=== PATIENT | female | born 1955 | race Caucasian/White ===

== ENCOUNTER 2018-03-07 17:21 | Emergency (ER) | payer MEDICAID ==
[2018-03-07] MEDS ORDERED: HYDROmorphone 0.5 MG/0.5 ML Syringe IVPUSH ONE (17:31)
--- NOTE | 2018-03-07 17:33 | EDM.PDOC ---
ED HPI GENERAL MEDICAL PROBLEM - General Chief Complaint: Neurological Problem Stated Complaint: AMBULANCE Time Seen by Provider: 03/07/18 17:25 Source of Information: Reports: Patient, EMS History Limitations: Reports: No Limitations - History of Present Illness INITIAL COMMENTS - FREE TEXT/NARRATIVE: 62 yo female presents via EMS after a 2 min generalized seizure at a local grocery store that occurred when she bent over. EMS transported after administering Zofran IV for nausea with relief. Stable vitals en route. Has no hx of epilepsy. Say she incurred a head injury about 3 weeks ago and still has a hematoma in the L congregational area. She was seen in [facility] after that [facility] , no imaging at that time. Admitted 2-3 alcoholic drinks/day to EMS. Does have a moderate UGALDE currently. No def'n incontinence or tongue biting. 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 ) Headache Pain Score (Numeric/FACES): 5 - Related Data Allergies Allergy/AdvReac Type Severity Reaction Status Date / Time lisinopril Allergy Other Verified 03/07/18 17:34 Penicillins Allergy Swelling Verified 03/07/18 17:34 tetracycline Allergy Other Verified 03/07/18 17:34 amlodipine AdvReac Cannot Verified 03/07/18 17:34 Remember levofloxacin [From Levaquin] AdvReac Cannot Verified 03/07/18 17:34 Remember prednisone AdvReac Other Verified 03/07/18 17:34 ED ROS GENERAL - Review of Systems Review Of Systems: See Below Constitutional: Reports: No Symptoms HEENT: Reports: No Symptoms Respiratory: Reports: No Symptoms Cardiovascular: Reports: No Symptoms GI/Abdominal: Reports: Nausea. Denies: Abdominal Pain, Black Stool, Bloody Stool, Constipation, Diarrhea, Distension, Hematemesis, Hematochezia, Melena, Vomiting : Reports: No Symptoms. Denies: Incontinence Musculoskeletal: Reports: No Symptoms Skin: Reports: No Symptoms Neurological: Reports: Headache Psychiatric: Reports: No Symptoms - Physical Exam Exam: See Below Exam Limited By: No Limitations General Appearance: Alert, WD/WN, No Apparent Distress Eye Exam: Bilateral Eye: EOMI, Normal Inspection, PERRL Ears: Normal External Exam, Normal Canal, Hearing Grossly Normal, Normal TMs Nose: Normal Inspection, Normal Mucosa, No Blood Throat/Mouth: Normal Inspection, Normal Lips, Normal Oropharynx, Normal Voice, No Airway Compromise Head Exam: Atraumatic, Normocephalic Neck: Normal Inspection, Supple Respiratory/Chest: No Respiratory Distress, Lungs Clear, Normal Breath Sounds, No Accessory Muscle Use Cardiovascular: Regular Rate, Rhythm, No Edema GI/Abdominal: Normal Bowel Sounds, Soft, Non-Tender, No Distention Neuro Exam (Abbreviated): Alert, Oriented, CN II-XII Intact, Normal Cognition, No Motor/Sensory Deficits Extremities: Normal Inspection, Normal Range of Motion, Non-Tender, No Pedal Edema Psychiatric: Normal Affect, Normal Mood Skin Exam: Warm, Dry, Intact, Normal Color, No Rash Course - Vital Signs Text/Narrative:: Had a seizure in [place] that lasted about 20 sec associated with arms in full flexion and L leg shaking. Was given 1 mg of Ativan IV at the conclusion of the seizure. Dr. Christopher, [facility] neurosurgery, accepted @ 1820h Last Recorded V/S: Last Vital Signs Temp 36.6 C 03/07/18 17:28 Pulse 85 03/07/18 18:06 Resp 17 03/07/18 18:06 BP 136/76 03/07/18 18:06 Pulse Ox 94 L 03/07/18 18:06 - Orders/Labs/Meds Orders: Active Orders 24 hr Category Date Time Status Merrill Catheter Insertion [Insert Urinary Catheter] [OM. Care 03/07/18 18:15 Ordered PC] Q24H Urinary Catheter Assessment [RC] ASDIRECTED Care 03/07/18 18:13 Ordered Head wo Cont [CT] Stat Exams 03/07/18 17:22 Ordered UA W/MICROSCOPIC [URIN] Stat Lab 03/07/18 17:27 Ordered Sodium Chloride 0.9% with KCl 20 mEq @ 125 mL/Hr (1000 Med 03/07/18 18:15 Ordered mL) NS + KCl 20mEq/L [Normal Saline with 20 mEq KCl] 1,000 ml IV ASDIRECTED Labs: Laboratory Tests 03/07/18 03/07/18 03/07/18 Range/Units 17:27 17:27 17:27 WBC 4.4 L (4.5-11.0) K/uL RBC 3.53 (3.30-5.50) M/uL Hgb 11.5 L (12.0-15.0) g/dL Hct 33.6 L (36.0-48.0) % MCV 95 (80-98) fL MCH 33 H (27-31) pg MCHC 34 (32-36) % Plt Count 123 L (150-400) K/uL Sodium 132 L (140-148) mmol/L Potassium 2.6 L* (3.6-5.2) mmol/L Chloride 88 L (100-108) mmol/L Carbon Dioxide 24 (21-32) mmol/L Anion Gap 22.6 H (5.0-14.0) mmol/L BUN 9 (7-18) mg/dL Creatinine 0.9 (0.6-1.0) mg/dL Est Cr Clr Drug Dosing 64.64 mL/min Estimated GFR (MDRD) > 60 (>60) Glucose 101 (74-106) mg/dL Calcium 7.4 L (8.5-10.1) mg/dL Total Bilirubin 1.5 H (0.2-1.0) mg/dL AST 134 H (15-37) U/L ALT 63 (12-78) U/L Alkaline Phosphatase 101 (46-116) U/L Total Protein 6.6 (6.4-8.2) g/dL Albumin 3.7 (3.4-5.0) g/dL Globulin 2.9 (2.3-3.5) g/dL Albumin/Globulin Ratio 1.3 (1.2-2.2) Ethyl Alcohol 9 mg/dL Meds: Medications Discontinued Medications Generic Name Dose Route Start Last Admin Trade Name Freq PRN Reason Stop Dose Admin Hydromorphone HCl 0.5 mg 03/07/18 17:31 Dilaudid IVPUSH 03/07/18 17:32 ONETIME ONE Lorazepam 1 mg 03/07/18 17:48 Ativan IVPUSH 03/07/18 17:49 ONETIME ONE Lorazepam Confirm 03/07/18 17:49 Ativan Administered 03/07/18 17:50 Dose 2 mg .ROUTE .STK-MED ONE Lorazepam 1 mg 03/07/18 18:04 Ativan IVPUSH 03/07/18 18:05 ONETIME ONE - Radiology Interpretation Free Text/Narrative:: Head CT-L ? subdural 1.4 mm acute bleed, minimal midline shift. CT Results Date: 03/07/18 CT Results Time: 18:10 Departure - Departure Time of Disposition: 18:30 Disposition: DC/Tfer to Acute Hospital 02 Condition: Fair Clinical Impression: Subdural hematoma, Seizure, Hypokalemia, Elevated LFTs, Alcohol abuse, daily use - Discharge Information Referrals: PCP,None [Primary Care Provider] - Forms: ED Department Discharge - My Orders Last 24 Hours: My Active Orders 03/07/18 17:22 Head wo Cont [CT] Stat 03/07/18 17:27 UA W/MICROSCOPIC [URIN] Stat 03/07/18 18:13 Urinary Catheter Assessment [RC] ASDIRECTED 03/07/18 18:15 Merrill Catheter Insertion [Insert Urinary Catheter] [OM.PC] Q24H Sodium Chloride 0.9% with KCl 20 mEq @ 125 mL/Hr (1000 mL) NS + KCl 20mEq/L [ Normal Saline with 20 mEq KCl] 1,000 ml IV ASDIRECTED - Assessment/Plan Last 24 Hours: My Active Orders 03/07/18 17:22 Head wo Cont [CT] Stat 03/07/18 17:27 UA W/MICROSCOPIC [URIN] Stat 03/07/18 18:13 Urinary Catheter Assessment [RC] ASDIRECTED 03/07/18 18:15 Merrill Catheter Insertion [Insert Urinary Catheter] [OM.PC] Q24H Sodium Chloride 0.9% with KCl 20 mEq @ 125 mL/Hr (1000 mL) NS + KCl 20mEq/L [ Normal Saline with 20 mEq KCl] 1,000 ml IV ASDIRECTED
[2018-03-07] MEDS ORDERED: LORazepam 2 MG/ML SDV IVPUSH ONE ×2 (17:48→18:04)
[2018-03-07] MEDS ORDERED: LORazepam 2 MG/ML SDV ONE (17:49)
[2018-03-07] MEDS ORDERED: NS + KCl 20mEq/L 1,000 ML IV SCH (18:15)
[2018-03-07] MEDS ORDERED: levETIRAcetam 1,000 MG in Sodium Chloride 0.9% 100 ML IV ONE (18:19)
== END 2018-03-07 19:14 ==
LOC: MERGE 17:21 → JP.ED 17:21 → EDBD 17:21 → JP.ED 19:14
DX: S06.5X9A Traumatic subdural hemorrhage with loss of consciousness of unspecified duration, initial encounter (principal); F10.129 Alcohol abuse with intoxication, unspecified; E87.6 Hypokalemia; R79.89 Other specified abnormal findings of blood chemistry; Y90.0 Blood alcohol level of less than 20 mg/100 ml; Z88.0 Allergy status to penicillin; Z88.8 Allergy status to other drugs, medicaments and biological substances; X58.XXXA Exposure to other specified factors, initial encounter
CPT/HCPCS: 36415; 51702; 70450; 80053; 81001; 85027; 96361; 96365; 96375; 99285; G0480; J1953; J2060; J3480; J7030